=== PATIENT | male | born 1955 | race Caucasian/White ===

== ENCOUNTER 2020-08-05 01:28 | Inpatient (IN) | payer MEDICAID ==
[~2020-08-05] VITALS: Ht 177.8 cm; Wt 60.1 kg
--- NOTE | 2020-08-05 01:46 | NUR ---
THIS IS A 65 YO MALE WHO PRESENTS TO THE ER C/O APPROX 1.5 INCH LAC TO LEFT YARSANI. PT DENIES LOC. PT ADMITS TO DRINKING 9 BEERS THIS EVENING. AO X 4. GCS 15. FS 101. CHA CASTILLO HAS BEEN TO SEE PT. WILL CONT TO MONITO RPT.
[2020-08-05] MEDS ORDERED: SODIUM CHLORIDE 0.9% 1,000ML IVBOLUS ONE (02:00)
[2020-08-05] MEDS ORDERED: MORPHINE SULFATE 4 MG/ML, 1ML IVPush PRN (02:00)
[2020-08-05] MEDS ORDERED: ONDANSETRON 2MG/ML, 2ML IVPush ONE (02:00)
[2020-08-05] MEDS ORDERED: SODIUM CHLORIDE FLUSH 10ML SYR IVF ONE (02:00)
--- NOTE | 2020-08-05 02:12 | NUR ---
CT DELAY- BED BUGS, NEED TO BE DECON.
--- NOTE | 2020-08-05 02:28 | NUR ---
PT CURRENTLY IN DECON.
[2020-08-05] MEDS ORDERED: AMPICILLIN/SULBACTAM 3 GM in SODIUM CHLORIDE 0.9% 100 ML IV ONE (03:00)
[2020-08-05] MEDS ORDERED: VANCOMYCIN PER PHARMACY MC PRN ×2 (03:00→04:30)
--- NOTE | 2020-08-05 03:20 | NUR ---
Patient denies any pain or feeling nausea. Stated that his feet were cold. Legal Support Analyst covered feet with towel for the time being, will con't to monitor patient
--- NOTE | 2020-08-05 03:24 | NUR ---
Waiting on lab to get second set of blood cultures before starting IV antibodics
--- NOTE | 2020-08-05 03:29 | NUR ---
Patient socks needed to be cut off by swimming pool service technician d/t multiple open wounds. Bilateral feet red, warm to touch, multiple draining wound. Provider at bedside during this time. MD states "lets leave them open to air for right now"
[2020-08-05] MEDS ORDERED: PHARMACOKINETIC CONSULTATION MC ONE ×2 (03:30→13:30)
[2020-08-05 03:43] LABS: ALANINE AMINOTRANSFERASE 19 U/L (12-78); ALBUMIN 1.6 g/dL (3.4-5.0); ANION GAP 7 mmol/L (5-15); BASOPHILS % (AUTO) 0 % (0-1); CALCIUM 7.4 mg/dL (8.5-10.1); CHLORIDE 100 mmol/L (98-107); EOSINOPHILS % (AUTO) 0 % (1-7); LYMPHOCYTES % (AUTO) 8 % (22-44); MEAN CORPUSCULAR HEMOGLOBIN 35.8 pg (27.5-34.5); MONOCYTES % (AUTO) 6 % (2-9); NEUTROPHILS % (AUTO) 85 % (42-75); PLATELET COUNT 508 x10^3/uL (130-400); RED BLOOD COUNT 3.19 x10^6/uL (4.38-5.82); RED CELL DISTRIBUTION WIDTH 13.7 % (9.4-14.8)
[2020-08-05 03:50] LABS: ALKALINE PHOSPHATASE 75 U/L (45-117); BILIRUBIN,TOTAL 0.5 mg/dL (0.2-1.0); C-REACTIVE PROTEIN, QUANT 7.03 mg/dL (0.02-0.49); CREATININE 0.61 mg/dL (0.7-1.3); TOTAL PROTEIN 9.1 g/dL (6.4-8.2)
[2020-08-05] MEDS ORDERED: VANCOMYCIN 1,600 MG in SODIUM CHLORIDE 0.9% 250 ML IV ONE (04:00)
[2020-08-05 04:22] LABS: HCT (SEDRATE) 33.5 % (39.2-51.8)
[2020-08-05 04:30] LABS: <PLATELET ESTIMATE> INCREASED; MD MORPH REVIEW ONLY
[2020-08-05 04:31] LABS: SMALL PLATELETS 1+
[2020-08-05] MEDS ORDERED: DOCUSATE 100 MG CAPSULE PO PRN (05:00)
[2020-08-05] MEDS: HEPARIN 5,000 UNITS/ML, 1ML SQ SCH ×3 (05:00→20:48)
--- NOTE | 2020-08-05 06:22 | NUR ---
Patient moved to hospital bed for comfort and skin intergrity. Patient offers no complaints at this time. VSS. Call light within reach
[2020-08-05] MEDS ORDERED: HEPARIN 5,000 UNITS/ML, 1ML ONE ×3 (06:32→20:45)
--- NOTE | 2020-08-05 07:11 | NUR ---
CARE ASSUMED. PT RESTING IN BED. PT ON MONITOR. PT DENIES NEEDS
[2020-08-05] MEDS: POTASSIUM CHLORIDE 20 MEQ, MAGNESIUM SULFATE 1 GM, THIAMINE 200 MG, FOLIC ACID 1 MG, MV... IV SCH (08:12)
[2020-08-05] MEDS: AMPICILLIN/SULBACTAM 3 GM in SODIUM CHLORIDE 0.9% 100 ML IV SCH ×3 (09:00→20:49)
[2020-08-05] MEDS: NICOTINE 14MG/24 HR PATCH.TD24 TD SCH (09:00)
--- NOTE | 2020-08-05 09:00 | NUR ---
PT SLEEPING. DENIE COMPLAINTS
[2020-08-05] MEDS ORDERED: POTASSIUM CHLORIDE 20 MEQ TAB.ER.PRT PO ONE (10:30)
[2020-08-05] MEDS ORDERED: POTASSIUM CHLORIDE 20 MEQ TAB.ER.PRT ONE (10:41)
--- NOTE | 2020-08-05 11:50 | NUR ---
PT UP TO BSC. STAND BY ASSIST.
--- NOTE | 2020-08-05 12:00 | NUR ---
PT GIVEN LUNCH TRAY AND SAT UP FOR COMFORT
[2020-08-05] MEDS ORDERED: PHARMACOKINETIC MONITORING MC PRN (13:30)
--- NOTE | 2020-08-05 14:11 | NUR ---
PTS WOUNDS HAVE BEEN OPEN TO AIR AND DRY, UNABLE TO COLLECT WOUND CX AT THIS TIME.
--- NOTE | 2020-08-05 16:33 | NUR ---
PT GOING TO MRI
[2020-08-05] MEDS ORDERED: GADOTERATE 7.5 MMOL/15 ML VIAL ONE (16:59)
--- NOTE | 2020-08-05 18:05 | NUR ---
PT BACK FROM MRI. PT PLACED BACK ON ALL MONITORING EQUIPMENT. IV RECONNECTED AND STARTED PER NOV.
--- NOTE | 2020-08-05 19:03 | NUR ---
DIET TRAY DELIVERED.
--- NOTE | 2020-08-05 19:27 | NUR ---
PT TRANFERRED TO BEDSIDE COMMODE WITH CGA. PT POSTIONED FOR COMFORT ON HOSPITAL BED.
--- NOTE | 2020-08-05 21:11 | NUR ---
REPORT GIVEN TO HARDY LOUISE.
[2020-08-05 22:51] VITALS: BP 101/51
[2020-08-05] MEDS: VANCOMYCIN 1,300 MG in SODIUM CHLORIDE 0.9% 250 ML IV SCH (23:39)
[2020-08-06 01:13] VITALS: BP 102/51
[2020-08-06] MEDS: AMPICILLIN/SULBACTAM 3 GM in SODIUM CHLORIDE 0.9% 100 ML IV SCH ×4 (03:01→23:31)
[2020-08-06] MEDS: HEPARIN 5,000 UNITS/ML, 1ML SQ SCH ×3 (05:16→22:15)
[2020-08-06 05:42] LABS: BASOPHILS % (AUTO) 1 % (0-1); EOSINOPHILS % (AUTO) 1 % (1-7); LYMPHOCYTES % (AUTO) 11 % (22-44); MEAN CORPUSCULAR HEMOGLOBIN 35.4 pg (27.5-34.5); MEAN CORPUSCULAR HGB CONC 33.7 g/dL (33.2-36.2); MONOCYTES % (AUTO) 9 % (2-9); NEUTROPHILS % (AUTO) 78 % (42-75); PLATELET COUNT 444 x10^3/uL (130-400); RED BLOOD COUNT 2.77 x10^6/uL (4.38-5.82)
[2020-08-06 06:05] LABS: ANION GAP 7 mmol/L (5-15); CALCIUM 7.3 mg/dL (8.5-10.1); CHLORIDE 110 mmol/L (98-107)
[2020-08-06 06:06] LABS: CREATININE 0.44 mg/dL (0.7-1.3)
[2020-08-06 06:57] LABS: MD SCAN
[2020-08-06 08:04] VITALS: BP 102/62
[2020-08-06] MEDS: POTASSIUM CHLORIDE 20 MEQ, MAGNESIUM SULFATE 1 GM, THIAMINE 200 MG, FOLIC ACID 1 MG, MV... IV SCH (08:22)
[2020-08-06] MEDS: NICOTINE 14MG/24 HR PATCH.TD24 TD SCH (09:00)
[2020-08-06] MEDS ORDERED: POTASSIUM CHLORIDE 20 MEQ TAB.ER.PRT PO ONE (10:00)
[2020-08-06 13:20] VITALS: BP 123/64
[2020-08-06] MEDS: VANCOMYCIN 1,300 MG in SODIUM CHLORIDE 0.9% 250 ML IV SCH (18:12)
[2020-08-06 20:35] VITALS: BP 116/67
[2020-08-06 23:28] LABS: CLOSTRIDIUM DIFFICILE ANTIGEN NEGATIVE; CLOSTRIDIUM DIFFICILE TOXIN NEGATIVE (Negative)
[2020-08-07 01:55] VITALS: BP 132/74
[2020-08-07] MEDS: AMPICILLIN/SULBACTAM 3 GM in SODIUM CHLORIDE 0.9% 100 ML IV SCH ×3 (06:13→17:54)
[2020-08-07] MEDS: HEPARIN 5,000 UNITS/ML, 1ML SQ SCH ×3 (06:13→21:17)
[2020-08-07 08:05] VITALS: BP 142/78
[2020-08-07] MEDS: NICOTINE 14MG/24 HR PATCH.TD24 TD SCH (08:21)
[2020-08-07] MEDS: POTASSIUM CHLORIDE 20 MEQ, MAGNESIUM SULFATE 1 GM, THIAMINE 200 MG, FOLIC ACID 1 MG, MV... IV SCH (10:06)
[2020-08-07 10:08] LABS: BASOPHILS % (AUTO) 1 % (0-1); EOSINOPHILS % (AUTO) 1 % (1-7); LYMPHOCYTES % (AUTO) 15 % (22-44); MEAN CORPUSCULAR HEMOGLOBIN 35.2 pg (27.5-34.5); MONOCYTES % (AUTO) 9 % (2-9); NEUTROPHILS % (AUTO) 75 % (42-75); PLATELET COUNT 448 x10^3/uL (130-400); RED BLOOD COUNT 2.99 x10^6/uL (4.38-5.82); RED CELL DISTRIBUTION WIDTH 14.1 % (9.4-14.8)
[2020-08-07 10:13] LABS: MD NO
[2020-08-07 10:15] LABS: ANION GAP 4 mmol/L (5-15); CALCIUM 7.4 mg/dL (8.5-10.1); CHLORIDE 112 mmol/L (98-107); CREATININE 0.53 mg/dL (0.7-1.3)
[2020-08-07] MEDS: VANCOMYCIN 1,300 MG in SODIUM CHLORIDE 0.9% 250 ML IV SCH (10:59)
[2020-08-07 15:55] VITALS: BP 129/73
[2020-08-07 19:19] VITALS: BP 135/75
[2020-08-07] MEDS: VANCOMYCIN 1,200 MG in SODIUM CHLORIDE 0.9% 250 ML IV SCH (22:47)
[2020-08-08] MEDS: AMPICILLIN/SULBACTAM 3 GM in SODIUM CHLORIDE 0.9% 100 ML IV SCH ×4 (00:49→18:37)
[2020-08-08 01:45] VITALS: BP 148/82
[2020-08-08] MEDS: HEPARIN 5,000 UNITS/ML, 1ML SQ SCH ×3 (04:52→20:32)
[2020-08-08 05:47] LABS: BASOPHILS % (AUTO) 1 % (0-1); EOSINOPHILS % (AUTO) 0 % (1-7); LYMPHOCYTES % (AUTO) 10 % (22-44); MEAN CORPUSCULAR HEMOGLOBIN 36.1 pg (27.5-34.5); MEAN CORPUSCULAR HGB CONC 34.4 g/dL (33.2-36.2); MONOCYTES % (AUTO) 7 % (2-9); NEUTROPHILS % (AUTO) 82 % (42-75); PLATELET COUNT 445 x10^3/uL (130-400); RED CELL DISTRIBUTION WIDTH 13.9 % (9.4-14.8)
[2020-08-08 05:59] LABS: CALCIUM 7.3 mg/dL (8.5-10.1); CHLORIDE 111 mmol/L (98-107)
[2020-08-08 06:03] LABS: ANION GAP 4 mmol/L (5-15); CREATININE 0.46 mg/dL (0.7-1.3)
[2020-08-08 06:08] LABS: MD NO
[2020-08-08] MEDS: NICOTINE 14MG/24 HR PATCH.TD24 TD SCH (07:50)
[2020-08-08 08:07] VITALS: BP 145/77
[2020-08-08] MEDS: ACETAMINOPHEN 325 MG TABLET PO PRN ×2 (08:14→20:31)
[2020-08-08] MEDS: VANCOMYCIN 1,200 MG in SODIUM CHLORIDE 0.9% 250 ML IV SCH ×2 (10:10→22:06)
[2020-08-08 12:31] VITALS: BP 117/73
[2020-08-08 19:04] VITALS: BP 122/73
[2020-08-08] MEDS: MUPIROCIN OINT 2%, 22GM TP SCH (21:00)
[2020-08-09] MEDS: AMPICILLIN/SULBACTAM 3 GM in SODIUM CHLORIDE 0.9% 100 ML IV SCH ×4 (00:37→18:30)
[2020-08-09 01:51] VITALS: BP 122/73
[2020-08-09] MEDS: HEPARIN 5,000 UNITS/ML, 1ML SQ SCH ×3 (05:29→20:21)
[2020-08-09 07:30] VITALS: BP 122/75
[2020-08-09] MEDS: MUPIROCIN OINT 2%, 22GM TP SCH ×2 (08:43→20:21)
[2020-08-09] MEDS: NICOTINE 14MG/24 HR PATCH.TD24 TD SCH (08:43)
[2020-08-09] MEDS: VANCOMYCIN 1,200 MG in SODIUM CHLORIDE 0.9% 250 ML IV SCH (10:21)
[2020-08-09 12:57] VITALS: BP 129/77
[2020-08-09 19:03] VITALS: BP 117/73
[2020-08-09] MEDS: CEFAZOLIN PMX 1GM/50ML 50 ML IV SCH (20:21)
[2020-08-09] MEDS: ACETAMINOPHEN 325 MG TABLET PO PRN (20:47)
[2020-08-10 00:18] VITALS: BP 125/74
[2020-08-10] MEDS: CEFAZOLIN PMX 1GM/50ML 50 ML IV SCH ×3 (04:18→20:03)
[2020-08-10] MEDS: HEPARIN 5,000 UNITS/ML, 1ML SQ SCH ×3 (04:22→21:25)
[2020-08-10 06:09] LABS: BASOPHILS % (AUTO) 1 % (0-1); EOSINOPHILS % (AUTO) 1 % (1-7); LYMPHOCYTES % (AUTO) 11 % (22-44); MEAN CORPUSCULAR HEMOGLOBIN 35.3 pg (27.5-34.5); MEAN CORPUSCULAR HGB CONC 33.3 g/dL (33.2-36.2); MONOCYTES % (AUTO) 9 % (2-9); NEUTROPHILS % (AUTO) 79 % (42-75); PLATELET COUNT 457 x10^3/uL (130-400); RED BLOOD COUNT 2.85 x10^6/uL (4.38-5.82)
[2020-08-10 06:52] LABS: MD NO
[2020-08-10 06:59] VITALS: BP 155/88
[2020-08-10 07:53] LABS: ANION GAP 6 mmol/L (5-15); CALCIUM 7.3 mg/dL (8.5-10.1); CHLORIDE 107 mmol/L (98-107)
[2020-08-10 07:54] LABS: CREATININE 0.49 mg/dL (0.7-1.3)
[2020-08-10] MEDS: NICOTINE 14MG/24 HR PATCH.TD24 TD SCH (09:00)
[2020-08-10] MEDS: POTASSIUM CHLORIDE 20 MEQ TAB.ER.PRT PO SCH ×2 (11:17→17:22)
[2020-08-10] MEDS: MUPIROCIN OINT 2%, 22GM TP SCH ×2 (11:17→22:22)
[2020-08-10 13:52] VITALS: BP 116/71
[2020-08-10 18:37] VITALS: BP 115/67
[2020-08-11] MEDS: ACETAMINOPHEN 325 MG TABLET PO PRN ×2 (00:50→11:05)
[2020-08-11 02:04] VITALS: BP 147/78
[2020-08-11] MEDS: CEFAZOLIN PMX 1GM/50ML 50 ML IV SCH ×3 (04:01→20:00)
[2020-08-11] MEDS: HEPARIN 5,000 UNITS/ML, 1ML SQ SCH ×3 (04:01→20:19)
[2020-08-11 07:01] VITALS: BP 149/87
[2020-08-11] MEDS: NICOTINE 14MG/24 HR PATCH.TD24 TD SCH (07:56)
[2020-08-11] MEDS: MUPIROCIN OINT 2%, 22GM TP SCH ×2 (09:13→20:19)
[2020-08-11] MEDS: LACTOBACILLUS CHEW TABLET PO SCH ×3 (09:13→20:18)
[2020-08-11 10:40] LABS: ANION GAP 6 mmol/L (5-15); CALCIUM 7.3 mg/dL (8.5-10.1); CHLORIDE 108 mmol/L (98-107); CREATININE 0.45 mg/dL (0.7-1.3)
[2020-08-11 12:26] VITALS: BP 144/82
[2020-08-11] MEDS: POTASSIUM CHLORIDE 20 MEQ TAB.ER.PRT PO SCH (16:11)
[2020-08-11 18:43] VITALS: BP 127/77
[2020-08-12 00:31] VITALS: BP 139/74
[2020-08-12] MEDS: CEFAZOLIN PMX 1GM/50ML 50 ML IV SCH ×3 (03:57→20:18)
[2020-08-12] MEDS: HEPARIN 5,000 UNITS/ML, 1ML SQ SCH ×3 (04:55→20:18)
[2020-08-12 06:01] LABS: ANION GAP 3 mmol/L (5-15); CALCIUM 7.3 mg/dL (8.5-10.1); CHLORIDE 108 mmol/L (98-107); CREATININE 0.43 mg/dL (0.7-1.3)
[2020-08-12 07:10] VITALS: BP 144/70
[2020-08-12] MEDS: POTASSIUM CHLORIDE 20 MEQ TAB.ER.PRT PO SCH (09:16)
[2020-08-12] MEDS: LACTOBACILLUS CHEW TABLET PO SCH ×3 (09:16→20:18)
[2020-08-12] MEDS: NICOTINE 14MG/24 HR PATCH.TD24 TD SCH (09:17)
[2020-08-12] MEDS: MUPIROCIN OINT 2%, 22GM TP SCH ×2 (11:24→16:36)
[2020-08-12 13:02] VITALS: BP 133/79
[2020-08-12 18:57] VITALS: BP 133/80
[2020-08-12] MEDS: ACETAMINOPHEN 325 MG TABLET PO PRN (21:26)
[2020-08-13 00:47] VITALS: BP 147/85
[2020-08-13] MEDS: CEFAZOLIN PMX 1GM/50ML 50 ML IV SCH ×2 (04:23→11:14)
[2020-08-13] MEDS: HEPARIN 5,000 UNITS/ML, 1ML SQ SCH ×3 (04:24→20:28)
[2020-08-13] MEDS: MUPIROCIN OINT 2%, 22GM TP SCH ×4 (06:00→22:35)
[2020-08-13 07:50] VITALS: BP 158/85
[2020-08-13] MEDS: NICOTINE 14MG/24 HR PATCH.TD24 TD SCH ×2 (09:00→09:51)
[2020-08-13 09:15] LABS: BASOPHILS % (AUTO) 1 % (0-1); EOSINOPHILS % (AUTO) 1 % (1-7); LYMPHOCYTES % (AUTO) 13 % (22-44); MEAN CORPUSCULAR HEMOGLOBIN 35.4 pg (27.5-34.5); MEAN CORPUSCULAR HGB CONC 34.2 g/dL (33.2-36.2); MEAN PLATELET VOLUME 7.2 fL (7.4-10.4); MONOCYTES % (AUTO) 6 % (2-9); NEUTROPHILS % (AUTO) 81 % (42-75); PLATELET COUNT 468 x10^3/uL (130-400); RED CELL DISTRIBUTION WIDTH 13.8 % (9.4-14.8)
[2020-08-13 09:17] LABS: ANION GAP 6 mmol/L (5-15); CALCIUM 7.7 mg/dL (8.5-10.1); CHLORIDE 104 mmol/L (98-107); CREATININE 0.44 mg/dL (0.7-1.3)
[2020-08-13 09:47] LABS: MD SCAN
[2020-08-13] MEDS: LACTOBACILLUS CHEW TABLET PO SCH ×3 (09:49→20:28)
[2020-08-13] MEDS ORDERED: MAGNESIUM SULFATE PMX 4GM/100M 100 ML IVPB ONE (10:00)
[2020-08-13] MEDS ORDERED: LOPERAMIDE 1 MG/5 ML, 10ML UDC PO PRN (10:30)
[2020-08-13] MEDS ORDERED: LOPERAMIDE 2 MG CAPSULE PO ONE (10:30)
[2020-08-13] MEDS: POTASSIUM CHLORIDE 20 MEQ TAB.ER.PRT PO SCH (11:14)
[2020-08-13 12:28] VITALS: BP 147/82
[2020-08-13] MEDS: PIPERACILLIN/TAZO/PMX 4.5GM 100 ML IV SCH (18:13)
[2020-08-13 19:07] LABS: C-REACTIVE PROTEIN, QUANT 2.3 mg/dL (0.02-0.49)
[2020-08-13 19:51] VITALS: BP 112/64
[2020-08-13] MEDS: ACETAMINOPHEN 325 MG TABLET PO PRN (20:28)
[2020-08-14] MEDS: PIPERACILLIN/TAZO/PMX 4.5GM 100 ML IV SCH ×5 (00:09→23:21)
[2020-08-14 01:24] VITALS: BP 137/80
[2020-08-14] MEDS: HEPARIN 5,000 UNITS/ML, 1ML SQ SCH ×3 (05:28→20:48)
[2020-08-14 05:34] LABS: BASOPHILS % (AUTO) 1 % (0-1); EOSINOPHILS % (AUTO) 1 % (1-7); LYMPHOCYTES % (AUTO) 20 % (22-44); MEAN CORPUSCULAR HEMOGLOBIN 35.5 pg (27.5-34.5); MEAN CORPUSCULAR HGB CONC 33.9 g/dL (33.2-36.2); MEAN PLATELET VOLUME 7.1 fL (7.4-10.4); MONOCYTES % (AUTO) 7 % (2-9); NEUTROPHILS % (AUTO) 71 % (42-75); PLATELET COUNT 390 x10^3/uL (130-400); RED BLOOD COUNT 2.65 x10^6/uL (4.38-5.82); RED CELL DISTRIBUTION WIDTH 13.9 % (9.4-14.8)
[2020-08-14 05:38] LABS: ALBUMIN 1.2 g/dL (3.4-5.0); ANION GAP 5 mmol/L (5-15); CALCIUM 7.8 mg/dL (8.5-10.1); CHLORIDE 108 mmol/L (98-107)
[2020-08-14 05:39] LABS: MD NO
[2020-08-14 05:42] LABS: ALANINE AMINOTRANSFERASE 11 U/L (12-78); ALKALINE PHOSPHATASE 56 U/L (45-117); BILIRUBIN,TOTAL 0.3 mg/dL (0.2-1.0)
[2020-08-14 07:10] VITALS: BP 103/58
[2020-08-14] MEDS: NICOTINE 14MG/24 HR PATCH.TD24 TD SCH (09:00)
[2020-08-14] MEDS: LACTOBACILLUS CHEW TABLET PO SCH ×3 (09:39→20:48)
[2020-08-14] MEDS: POTASSIUM CHLORIDE 20 MEQ TAB.ER.PRT PO SCH (09:39)
[2020-08-14] MEDS: THIAMINE 100MG TABLET PO SCH (09:39)
[2020-08-14 13:23] VITALS: BP 113/70
[2020-08-14] MEDS: ACETAMINOPHEN 325 MG TABLET PO PRN (14:05)
[2020-08-14] MEDS: MUPIROCIN OINT 2%, 22GM TP SCH (15:37)
[2020-08-14 19:39] VITALS: BP 109/64
[2020-08-15 01:33] VITALS: BP 119/71
[2020-08-15] MEDS: MUPIROCIN OINT 2%, 22GM TP SCH ×2 (05:31→16:34)
[2020-08-15] MEDS: HEPARIN 5,000 UNITS/ML, 1ML SQ SCH ×3 (05:32→20:18)
[2020-08-15] MEDS: PIPERACILLIN/TAZO/PMX 4.5GM 100 ML IV SCH ×2 (05:33→12:14)
[2020-08-15] MEDS: ACETAMINOPHEN 325 MG TABLET PO PRN (06:18)
[2020-08-15 06:48] LABS: CHLORIDE 103 mmol/L (98-107)
[2020-08-15 06:50] LABS: BASOPHILS % (AUTO) 1 % (0-1); EOSINOPHILS % (AUTO) 1 % (1-7); LYMPHOCYTES % (AUTO) 19 % (22-44); MEAN CORPUSCULAR HEMOGLOBIN 35.2 pg (27.5-34.5); MEAN CORPUSCULAR HGB CONC 33.7 g/dL (33.2-36.2); MEAN PLATELET VOLUME 7.4 fL (7.4-10.4); MONOCYTES % (AUTO) 8 % (2-9); NEUTROPHILS % (AUTO) 73 % (42-75); PLATELET COUNT 444 x10^3/uL (130-400); RED BLOOD COUNT 2.78 x10^6/uL (4.38-5.82)
[2020-08-15 06:56] LABS: ALANINE AMINOTRANSFERASE 13 U/L (12-78); ALBUMIN 1.3 g/dL (3.4-5.0); ALKALINE PHOSPHATASE 59 U/L (45-117); ANION GAP 4 mmol/L (5-15); BILIRUBIN,TOTAL 0.2 mg/dL (0.2-1.0); CALCIUM 7.6 mg/dL (8.5-10.1); CREATININE 0.52 mg/dL (0.7-1.3); TOTAL PROTEIN 8.4 g/dL (6.4-8.2)
[2020-08-15 07:29] LABS: MD NO
[2020-08-15 08:16] VITALS: BP 118/78
[2020-08-15] MEDS: NICOTINE 14MG/24 HR PATCH.TD24 TD SCH (09:00)
[2020-08-15] MEDS: LACTOBACILLUS CHEW TABLET PO SCH ×3 (09:57→20:18)
[2020-08-15] MEDS: THIAMINE 100MG TABLET PO SCH (09:57)
[2020-08-15] MEDS: POTASSIUM CHLORIDE 20 MEQ TAB.ER.PRT PO SCH (09:57)
[2020-08-15] MEDS: ZINC SULFATE 220 MG CAPSULE PO SCH (12:14)
[2020-08-15] MEDS ORDERED: PHARMACY INSTRUCTION MC PRN (13:00)
[2020-08-15] MEDS ORDERED: DEXAMETHASONE 4 MG/ML, 1ML IVPush SCH (13:00)
[2020-08-15] MEDS: DEXAMETHASONE 4 MG/ML, 1ML IVPush SCH (13:25)
[2020-08-15] MEDS: CHOLECALCIFEROL 5,000u TAB PO SCH (13:25)
[2020-08-15 14:00] VITALS: BP 145/82
[2020-08-15] MEDS: ASCORBIC ACID 500 MG TABLET PO SCH (15:25)
[2020-08-15 20:15] VITALS: BP 127/70
[2020-08-16 01:53] VITALS: BP 130/72
[2020-08-16] MEDS: ZOLPIDEM 5MG TABLET PO PRN (03:22)
[2020-08-16] MEDS: HEPARIN 5,000 UNITS/ML, 1ML SQ SCH ×3 (05:45→20:34)
[2020-08-16] MEDS: MUPIROCIN OINT 2%, 22GM TP SCH ×2 (05:45→18:44)
[2020-08-16 06:18] LABS: ALANINE AMINOTRANSFERASE 11 U/L (12-78); ALBUMIN 1.2 g/dL (3.4-5.0); ANION GAP 5 mmol/L (5-15); CALCIUM 7.7 mg/dL (8.5-10.1); CHLORIDE 106 mmol/L (98-107); CREATININE 0.44 mg/dL (0.7-1.3)
[2020-08-16 06:20] LABS: ALKALINE PHOSPHATASE 58 U/L (45-117); BILIRUBIN,TOTAL 0.1 mg/dL (0.2-1.0); TOTAL PROTEIN 8.5 g/dL (6.4-8.2)
[2020-08-16 08:06] VITALS: BP 145/77
[2020-08-16] MEDS: NICOTINE 14MG/24 HR PATCH.TD24 TD SCH (08:54)
[2020-08-16] MEDS: THIAMINE 100MG TABLET PO SCH (08:54)
[2020-08-16] MEDS: DEXAMETHASONE 4 MG/ML, 1ML IVPush SCH (08:54)
[2020-08-16] MEDS: LACTOBACILLUS CHEW TABLET PO SCH ×3 (08:55→20:34)
[2020-08-16] MEDS: ASCORBIC ACID 500 MG TABLET PO SCH ×2 (08:55→15:27)
[2020-08-16] MEDS: ZINC SULFATE 220 MG CAPSULE PO SCH (08:55)
[2020-08-16] MEDS: CHOLECALCIFEROL 5,000u TAB PO SCH (08:55)
[2020-08-16 12:43] VITALS: BP 138/78
[2020-08-16] MEDS ORDERED: REMDESIVIR 200 MG in SODIUM CHLORIDE 0.9% 250 ML IVPB ONE (14:00)
[2020-08-16] MEDS ORDERED: LOPERAMIDE 2 MG CAPSULE ONE (15:23)
[2020-08-16 18:36] VITALS: BP 121/73
[2020-08-17 00:53] VITALS: BP 133/71
[2020-08-17] MEDS: HEPARIN 5,000 UNITS/ML, 1ML SQ SCH ×3 (04:40→21:05)
[2020-08-17] MEDS: MUPIROCIN OINT 2%, 22GM TP SCH ×2 (04:53→15:24)
[2020-08-17 06:58] LABS: BASOPHILS % (AUTO) 1 % (0-1); EOSINOPHILS % (AUTO) 0 % (1-7); LYMPHOCYTES % (AUTO) 24 % (22-44); MD NO; MEAN CORPUSCULAR HEMOGLOBIN 34.4 pg (27.5-34.5); MEAN CORPUSCULAR HGB CONC 33.5 g/dL (33.2-36.2); MEAN PLATELET VOLUME 7.1 fL (7.4-10.4); MONOCYTES % (AUTO) 6 % (2-9); NEUTROPHILS % (AUTO) 69 % (42-75); PLATELET COUNT 420 x10^3/uL (130-400); RED BLOOD COUNT 2.94 x10^6/uL (4.38-5.82); RED CELL DISTRIBUTION WIDTH 13.7 % (9.4-14.8)
[2020-08-17 07:08] LABS: ANION GAP 4 mmol/L (5-15); CALCIUM 7.9 mg/dL (8.5-10.1); CHLORIDE 106 mmol/L (98-107); CREATININE 0.34 mg/dL (0.7-1.3)
[2020-08-17 07:59] VITALS: BP 152/77
[2020-08-17] MEDS: THIAMINE 100MG TABLET PO SCH (08:14)
[2020-08-17] MEDS: CHOLECALCIFEROL 5,000u TAB PO SCH (08:14)
[2020-08-17] MEDS: POTASSIUM CHLORIDE 20 MEQ TAB.ER.PRT PO SCH ×2 (08:14→15:23)
[2020-08-17] MEDS: ZINC SULFATE 220 MG CAPSULE PO SCH (08:14)
[2020-08-17] MEDS: ASCORBIC ACID 500 MG TABLET PO SCH ×2 (08:14→15:24)
[2020-08-17] MEDS: LACTOBACILLUS CHEW TABLET PO SCH ×3 (08:14→21:05)
[2020-08-17] MEDS: DEXAMETHASONE 4 MG/ML, 1ML IVPush SCH (08:14)
[2020-08-17] MEDS: NICOTINE 14MG/24 HR PATCH.TD24 TD SCH (08:15)
[2020-08-17 09:57] LABS: ALANINE AMINOTRANSFERASE 13 U/L (12-78); ALBUMIN 1.4 g/dL (3.4-5.0); ANION GAP 8 mmol/L (5-15); CALCIUM 7.8 mg/dL (8.5-10.1); CHLORIDE 107 mmol/L (98-107)
[2020-08-17 10:00] LABS: ALKALINE PHOSPHATASE 59 U/L (45-117); BILIRUBIN,TOTAL 0.2 mg/dL (0.2-1.0); CREATININE 0.46 mg/dL (0.7-1.3); TOTAL PROTEIN 8.3 g/dL (6.4-8.2)
[2020-08-17 12:08] VITALS: BP 128/81
[2020-08-17] MEDS: REMDESIVIR 100 MG in SODIUM CHLORIDE 0.9% 250 ML IVPB SCH (13:25)
[2020-08-17 19:57] VITALS: BP 139/81
[2020-08-17] MEDS: ACETAMINOPHEN 325 MG TABLET PO PRN (21:05)
[2020-08-18 03:45] LABS: CHLORIDE 108 mmol/L (98-107)
[2020-08-18 03:46] LABS: BASOPHILS % (AUTO) 1 % (0-1); EOSINOPHILS % (AUTO) 0 % (1-7); LYMPHOCYTES % (AUTO) 26 % (22-44); MEAN CORPUSCULAR HEMOGLOBIN 34.9 pg (27.5-34.5); MEAN CORPUSCULAR HGB CONC 33.7 g/dL (33.2-36.2); MEAN PLATELET VOLUME 7.5 fL (7.4-10.4); MONOCYTES % (AUTO) 8 % (2-9); NEUTROPHILS % (AUTO) 65 % (42-75); PLATELET COUNT 443 x10^3/uL (130-400); RED BLOOD COUNT 2.84 x10^6/uL (4.38-5.82); RED CELL DISTRIBUTION WIDTH 13.7 % (9.4-14.8)
[2020-08-18 03:47] LABS: D-DIMER (DIC) 1.83 ug/mlFEU (0.00-0.52); MD NO; PROTIME 21.7 Seconds (9.6-11.5)
[2020-08-18 03:48] VITALS: BP 156/75
[2020-08-18 04:12] LABS: ALANINE AMINOTRANSFERASE 14 U/L (12-78); ALBUMIN 1.4 g/dL (3.4-5.0); ALKALINE PHOSPHATASE 64 U/L (45-117); ANION GAP 4 mmol/L (5-15); CALCIUM 7.7 mg/dL (8.5-10.1); TOTAL PROTEIN 8.2 g/dL (6.4-8.2)
[2020-08-18 04:25] LABS: BILIRUBIN,TOTAL < 0.1 mg/dL (0.2-1.0)
[2020-08-18] MEDS: HEPARIN 5,000 UNITS/ML, 1ML SQ SCH (05:17)
[2020-08-18] MEDS: MUPIROCIN OINT 2%, 22GM TP SCH ×2 (05:17→15:19)
[2020-08-18] MEDS: NICOTINE 14MG/24 HR PATCH.TD24 TD SCH (07:29)
[2020-08-18 07:50] VITALS: BP 149/75
[2020-08-18] MEDS ORDERED: ENOXAPARIN 60 MG/0.6 ML ONE (08:16)
[2020-08-18] MEDS: ZINC SULFATE 220 MG CAPSULE PO SCH (08:21)
[2020-08-18] MEDS: DEXAMETHASONE 4 MG/ML, 1ML IVPush SCH (08:21)
[2020-08-18] MEDS: THIAMINE 100MG TABLET PO SCH (08:21)
[2020-08-18] MEDS: CHOLECALCIFEROL 5,000u TAB PO SCH (08:21)
[2020-08-18] MEDS: ENOXAPARIN 60 MG/0.6 ML SQ SCH ×2 (08:21→21:25)
[2020-08-18] MEDS: LACTOBACILLUS CHEW TABLET PO SCH ×3 (08:21→21:24)
[2020-08-18] MEDS: ASCORBIC ACID 500 MG TABLET PO SCH ×2 (08:21→15:13)
[2020-08-18] MEDS ORDERED: PIPERACILLIN/TAZO/PMX 3.375GM 50 ML IV SCH (12:00)
[2020-08-18 15:11] VITALS: BP 133/75
[2020-08-18] MEDS: REMDESIVIR 100 MG in SODIUM CHLORIDE 0.9% 250 ML IVPB SCH (15:14)
[2020-08-18] MEDS: PIPERACILLIN/TAZO/PMX 3.375GM 50 ML IV SCH ×2 (18:00→23:55)
[2020-08-18 19:33] VITALS: BP 145/77
[2020-08-18] MEDS: ZOLPIDEM 5MG TABLET PO PRN (23:55)
[2020-08-19 00:08] VITALS: BP 158/83
[2020-08-19 04:18] LABS: ALBUMIN 1.7 g/dL (3.4-5.0); ANION GAP 6 mmol/L (5-15); CHLORIDE 105 mmol/L (98-107)
[2020-08-19 04:24] LABS: ALANINE AMINOTRANSFERASE 16 U/L (12-78); ALKALINE PHOSPHATASE 67 U/L (45-117); BILIRUBIN,TOTAL 0.2 mg/dL (0.2-1.0); CREATININE 0.51 mg/dL (0.7-1.3); TOTAL PROTEIN 8.9 g/dL (6.4-8.2)
[2020-08-19] MEDS: MUPIROCIN OINT 2%, 22GM TP SCH ×2 (06:06→16:25)
[2020-08-19] MEDS: PIPERACILLIN/TAZO/PMX 3.375GM 50 ML IV SCH ×4 (06:31→23:51)
[2020-08-19] MEDS: NICOTINE 14MG/24 HR PATCH.TD24 TD SCH (07:21)
[2020-08-19] MEDS: ENOXAPARIN 60 MG/0.6 ML SQ SCH ×2 (07:30→18:38)
[2020-08-19 07:52] VITALS: BP 148/84
[2020-08-19] MEDS: CHOLECALCIFEROL 5,000u TAB PO SCH (08:26)
[2020-08-19] MEDS: LACTOBACILLUS CHEW TABLET PO SCH ×3 (08:26→21:23)
[2020-08-19] MEDS: DEXAMETHASONE 4 MG/ML, 1ML IVPush SCH (08:26)
[2020-08-19] MEDS: THIAMINE 100MG TABLET PO SCH (08:26)
[2020-08-19] MEDS: ZINC SULFATE 220 MG CAPSULE PO SCH (08:26)
[2020-08-19] MEDS: ASCORBIC ACID 500 MG TABLET PO SCH ×2 (08:27→18:02)
[2020-08-19 12:18] VITALS: BP 133/76
[2020-08-19] MEDS: REMDESIVIR 100 MG in SODIUM CHLORIDE 0.9% 250 ML IVPB SCH (14:20)
[2020-08-19 18:48] VITALS: BP 141/74
[2020-08-19] MEDS: ZOLPIDEM 5MG TABLET PO PRN (21:23)
[2020-08-20 01:04] VITALS: BP 155/77
[2020-08-20] MEDS: MUPIROCIN OINT 2%, 22GM TP SCH ×2 (06:00→21:00)
[2020-08-20] MEDS: PIPERACILLIN/TAZO/PMX 3.375GM 50 ML IV SCH ×3 (06:09→18:31)
[2020-08-20 06:10] LABS: ALANINE AMINOTRANSFERASE 16 U/L (12-78); ALBUMIN 1.6 g/dL (3.4-5.0); ANION GAP 7 mmol/L (5-15); CHLORIDE 107 mmol/L (98-107); CREATININE 0.52 mg/dL (0.7-1.3)
[2020-08-20 06:12] LABS: ALKALINE PHOSPHATASE 69 U/L (45-117); BILIRUBIN,TOTAL 0.1 mg/dL (0.2-1.0); TOTAL PROTEIN 8.3 g/dL (6.4-8.2)
[2020-08-20] MEDS: NICOTINE 14MG/24 HR PATCH.TD24 TD SCH (07:11)
[2020-08-20 07:20] VITALS: BP 148/81
[2020-08-20] MEDS: ENOXAPARIN 60 MG/0.6 ML SQ SCH ×2 (07:30→20:28)
[2020-08-20] MEDS: LACTOBACILLUS CHEW TABLET PO SCH ×3 (09:42→23:19)
[2020-08-20] MEDS: DEXAMETHASONE 4 MG/ML, 1ML IVPush SCH (09:42)
[2020-08-20] MEDS: ASCORBIC ACID 500 MG TABLET PO SCH ×2 (09:42→16:35)
[2020-08-20] MEDS: CHOLECALCIFEROL 5,000u TAB PO SCH (09:42)
[2020-08-20] MEDS: THIAMINE 100MG TABLET PO SCH (09:43)
[2020-08-20] MEDS: ZINC SULFATE 220 MG CAPSULE PO SCH (09:47)
[2020-08-20] MEDS ORDERED: MAGNESIUM SULFATE PMX 4GM/100M 100 ML IVPB ONE (10:30)
[2020-08-20 12:14] VITALS: BP 138/81
[2020-08-20] MEDS: REMDESIVIR 100 MG in SODIUM CHLORIDE 0.9% 250 ML IVPB SCH (16:31)
[2020-08-20] MEDS: POTASSIUM CHLORIDE 20 MEQ TAB.ER.PRT PO SCH (16:35)
[2020-08-20 19:40] VITALS: BP 130/80
[2020-08-21] MEDS: ZOLPIDEM 5MG TABLET PO PRN
[2020-08-21 01:40] VITALS: BP 154/87
[2020-08-21 05:58] LABS: BASOPHILS % (AUTO) 1 % (0-1); EOSINOPHILS % (AUTO) 0 % (1-7); LYMPHOCYTES % (AUTO) 22 % (22-44); MEAN CORPUSCULAR HEMOGLOBIN 34.6 pg (27.5-34.5); MEAN CORPUSCULAR HGB CONC 33.8 g/dL (33.2-36.2); MEAN PLATELET VOLUME 7.5 fL (7.4-10.4); MONOCYTES % (AUTO) 8 % (2-9); NEUTROPHILS % (AUTO) 70 % (42-75); PLATELET COUNT 570 x10^3/uL (130-400); RED BLOOD COUNT 2.96 x10^6/uL (4.38-5.82); RED CELL DISTRIBUTION WIDTH 13.6 % (9.4-14.8)
[2020-08-21 06:06] LABS: CHLORIDE 106 mmol/L (98-107); D-DIMER (DIC) 1.7 ug/mlFEU (0.00-0.52); PROTIME 12.2 Seconds (9.6-11.5)
[2020-08-21] MEDS: PIPERACILLIN/TAZO/PMX 3.375GM 50 ML IV SCH ×4 (06:08→17:56)
[2020-08-21 06:11] LABS: ALANINE AMINOTRANSFERASE 19 U/L (12-78); ALBUMIN 1.7 g/dL (3.4-5.0); ALKALINE PHOSPHATASE 73 U/L (45-117); ANION GAP 6 mmol/L (5-15); BILIRUBIN,TOTAL 0.1 mg/dL (0.2-1.0); CALCIUM 8.2 mg/dL (8.5-10.1); CREATININE 0.47 mg/dL (0.7-1.3); TOTAL PROTEIN 8.7 g/dL (6.4-8.2)
[2020-08-21 06:17] LABS: MD NO
[2020-08-21 07:00] VITALS: BP 163/86
[2020-08-21] MEDS: ENOXAPARIN 60 MG/0.6 ML SQ SCH ×2 (07:50→21:42)
[2020-08-21] MEDS: ASCORBIC ACID 500 MG TABLET PO SCH ×2 (07:51→16:29)
[2020-08-21] MEDS: POTASSIUM CHLORIDE 20 MEQ TAB.ER.PRT PO SCH (07:51)
[2020-08-21] MEDS: ZINC SULFATE 220 MG CAPSULE PO SCH (07:51)
[2020-08-21] MEDS: THIAMINE 100MG TABLET PO SCH (07:51)
[2020-08-21] MEDS: DEXAMETHASONE 4 MG/ML, 1ML IVPush SCH (07:51)
[2020-08-21] MEDS: NICOTINE 14MG/24 HR PATCH.TD24 TD SCH (07:51)
[2020-08-21] MEDS: LACTOBACILLUS CHEW TABLET PO SCH ×3 (07:51→21:42)
[2020-08-21] MEDS: CHOLECALCIFEROL 5,000u TAB PO SCH (07:51)
[2020-08-21 12:45] VITALS: BP 121/73
[2020-08-21 20:01] VITALS: BP 152/85
[2020-08-21] MEDS: MUPIROCIN OINT 2%, 22GM TP SCH (21:00)
[2020-08-22 00:06] VITALS: BP 157/88
[2020-08-22] MEDS: PIPERACILLIN/TAZO/PMX 3.375GM 50 ML IV SCH ×4 (00:09→18:01)
[2020-08-22 05:12] LABS: BASOPHILS % (AUTO) 1 % (0-1); EOSINOPHILS % (AUTO) 0 % (1-7); LYMPHOCYTES % (AUTO) 19 % (22-44); MEAN CORPUSCULAR HEMOGLOBIN 34.7 pg (27.5-34.5); MEAN CORPUSCULAR HGB CONC 33.8 g/dL (33.2-36.2); MEAN PLATELET VOLUME 7.5 fL (7.4-10.4); MONOCYTES % (AUTO) 9 % (2-9); NEUTROPHILS % (AUTO) 71 % (42-75); PLATELET COUNT 612 x10^3/uL (130-400); RED BLOOD COUNT 3.02 x10^6/uL (4.38-5.82); RED CELL DISTRIBUTION WIDTH 13.9 % (9.4-14.8)
[2020-08-22 05:21] LABS: CHLORIDE 105 mmol/L (98-107)
[2020-08-22 05:25] LABS: ANION GAP 6 mmol/L (5-15); CALCIUM 8.2 mg/dL (8.5-10.1); CREATININE 0.49 mg/dL (0.7-1.3)
[2020-08-22 05:33] LABS: MD NO
[2020-08-22 07:13] VITALS: BP 134/78
[2020-08-22] MEDS: ENOXAPARIN 60 MG/0.6 ML SQ SCH ×2 (07:57→21:45)
[2020-08-22] MEDS: LACTOBACILLUS CHEW TABLET PO SCH ×3 (07:57→21:44)
[2020-08-22] MEDS: CHOLECALCIFEROL 5,000u TAB PO SCH (07:57)
[2020-08-22] MEDS: ASCORBIC ACID 500 MG TABLET PO SCH ×2 (07:57→16:29)
[2020-08-22] MEDS: ZINC SULFATE 220 MG CAPSULE PO SCH (07:57)
[2020-08-22] MEDS: DEXAMETHASONE 4 MG/ML, 1ML IVPush SCH (07:57)
[2020-08-22] MEDS: THIAMINE 100MG TABLET PO SCH (07:57)
[2020-08-22] MEDS: NICOTINE 14MG/24 HR PATCH.TD24 TD SCH (07:58)
[2020-08-22 12:36] VITALS: BP 109/66
--- NOTE | 2020-08-22 16:47 | NUR ---
3rd floor nursing activity sheet on pt's wall. educated pt to be proactive to have nurisng assist pt with: 1) up in chair for meals 2) walk 2-3 times a day in room informed RN. Addendum: 08/22/20 at 1649 by Heike Uribe PT Amended: Links added.
[2020-08-22 19:21] VITALS: BP 125/66
[2020-08-22] MEDS: MUPIROCIN OINT 2%, 22GM TP SCH (21:00)
[2020-08-23] MEDS: PIPERACILLIN/TAZO/PMX 3.375GM 50 ML IV SCH ×4 (00:25→17:27)
[2020-08-23 01:18] VITALS: BP 147/89
[2020-08-23 06:27] LABS: BASOPHILS % (AUTO) 0 % (0-1); EOSINOPHILS % (AUTO) 0 % (1-7); LYMPHOCYTES % (AUTO) 16 % (22-44); MEAN CORPUSCULAR HEMOGLOBIN 34.6 pg (27.5-34.5); MEAN CORPUSCULAR HGB CONC 33.7 g/dL (33.2-36.2); MEAN PLATELET VOLUME 7.3 fL (7.4-10.4); MONOCYTES % (AUTO) 8 % (2-9); NEUTROPHILS % (AUTO) 75 % (42-75); PLATELET COUNT 611 x10^3/uL (130-400); RED BLOOD COUNT 3.04 x10^6/uL (4.38-5.82); RED CELL DISTRIBUTION WIDTH 14.2 % (9.4-14.8)
[2020-08-23 06:30] LABS: MD NO
[2020-08-23 06:37] LABS: ANION GAP 6 mmol/L (5-15); CALCIUM 8.1 mg/dL (8.5-10.1); CHLORIDE 105 mmol/L (98-107); CREATININE 0.43 mg/dL (0.7-1.3)
[2020-08-23 07:10] VITALS: BP 136/83
[2020-08-23] MEDS: NICOTINE 14MG/24 HR PATCH.TD24 TD SCH (09:00)
[2020-08-23] MEDS: THIAMINE 100MG TABLET PO SCH (09:23)
[2020-08-23] MEDS: ZINC SULFATE 220 MG CAPSULE PO SCH (09:23)
[2020-08-23] MEDS: ENOXAPARIN 60 MG/0.6 ML SQ SCH ×2 (09:23→21:39)
[2020-08-23] MEDS: ASCORBIC ACID 500 MG TABLET PO SCH ×2 (09:23→15:38)
[2020-08-23] MEDS: CHOLECALCIFEROL 5,000u TAB PO SCH (09:23)
[2020-08-23] MEDS: LACTOBACILLUS CHEW TABLET PO SCH ×3 (09:23→21:40)
[2020-08-23] MEDS: DEXAMETHASONE 4 MG TABLET PO SCH (09:23)
[2020-08-23 12:02] VITALS: BP 115/67
[2020-08-23 19:02] VITALS: BP 138/77
[2020-08-23] MEDS: MUPIROCIN OINT 2%, 22GM TP SCH (21:00)
[2020-08-24] MEDS: PIPERACILLIN/TAZO/PMX 3.375GM 50 ML IV SCH ×2 (00:28→06:03)
[2020-08-24 00:55] VITALS: BP 131/69
[2020-08-24 07:28] VITALS: BP 151/83
[2020-08-24] MEDS: ENOXAPARIN 60 MG/0.6 ML SQ SCH ×2 (10:01→20:45)
[2020-08-24] MEDS: ASCORBIC ACID 500 MG TABLET PO SCH ×2 (10:01→16:05)
[2020-08-24] MEDS: THIAMINE 100MG TABLET PO SCH (10:01)
[2020-08-24] MEDS: CHOLECALCIFEROL 5,000u TAB PO SCH (10:01)
[2020-08-24] MEDS: ZINC SULFATE 220 MG CAPSULE PO SCH (10:01)
[2020-08-24] MEDS: NICOTINE 14MG/24 HR PATCH.TD24 TD SCH (10:01)
[2020-08-24] MEDS: LACTOBACILLUS CHEW TABLET PO SCH ×3 (10:01→20:44)
[2020-08-24] MEDS: DEXAMETHASONE 4 MG TABLET PO SCH (10:01)
[2020-08-24 15:29] VITALS: BP 132/69
[2020-08-24 19:45] VITALS: BP 125/74
[2020-08-25 01:53] VITALS: BP 132/79
[2020-08-25 03:10] LABS: ANION GAP 2 mmol/L (5-15); CALCIUM 8.4 mg/dL (8.5-10.1); CHLORIDE 105 mmol/L (98-107); CREATININE 0.49 mg/dL (0.7-1.3)
[2020-08-25 03:12] LABS: D-DIMER (DIC) 0.89 ug/mlFEU (0.00-0.52); PROTIME 11.4 Seconds (9.6-11.5)
[2020-08-25 09:00] VITALS: BP 130/68
[2020-08-25] MEDS: NICOTINE 14MG/24 HR PATCH.TD24 TD SCH (09:01)
[2020-08-25] MEDS: LACTOBACILLUS CHEW TABLET PO SCH ×3 (09:08→20:11)
[2020-08-25] MEDS: ENOXAPARIN 60 MG/0.6 ML SQ SCH (09:08)
[2020-08-25] MEDS: DEXAMETHASONE 4 MG TABLET PO SCH (09:08)
[2020-08-25] MEDS: THIAMINE 100MG TABLET PO SCH (09:08)
[2020-08-25] MEDS: ZINC SULFATE 220 MG CAPSULE PO SCH (09:08)
[2020-08-25] MEDS: ASCORBIC ACID 500 MG TABLET PO SCH ×2 (09:08→17:18)
[2020-08-25] MEDS: CHOLECALCIFEROL 5,000u TAB PO SCH (09:09)
[2020-08-25] MEDS ORDERED: THIA100T67 PO (09:21)
[2020-08-25] MEDS ORDERED: ZINC220C7 PO (09:21)
[2020-08-25] MEDS ORDERED: ACET325T26 PO (09:21)
[2020-08-25] MEDS ORDERED: ASPI-650 PO (09:21)
[2020-08-25] MEDS ORDERED: CHOL500045 PO (09:21)
[2020-08-25] MEDS ORDERED: ASCO500T9 PO (09:21)
[2020-08-25] MEDS ORDERED: ATOR10TA9 PO (09:34)
[2020-08-25] MEDS ORDERED: DEXA4TAB66 PO (09:34)
[2020-08-25 15:59] VITALS: BP 132/69
[2020-08-25 19:36] VITALS: BP 123/70
[2020-08-25] MEDS ORDERED: ATORVASTATIN 10 MG TABLET PO SCH (21:00)
[2020-08-26 01:32] VITALS: BP 119/66
[2020-08-26] MEDS ORDERED: ASPIRIN 325 MG TABLET PO SCH (06:00)
[2020-08-26 07:52] VITALS: BP 166/92
[2020-08-26] MEDS: NICOTINE 14MG/24 HR PATCH.TD24 TD SCH (09:00)
[2020-08-26] MEDS: THIAMINE 100MG TABLET PO SCH (10:38)
[2020-08-26] MEDS: ASCORBIC ACID 500 MG TABLET PO SCH (10:38)
[2020-08-26] MEDS: ZINC SULFATE 220 MG CAPSULE PO SCH (10:38)
[2020-08-26] MEDS: LACTOBACILLUS CHEW TABLET PO SCH (10:38)
[2020-08-26] MEDS: CHOLECALCIFEROL 5,000u TAB PO SCH (10:38)
[2020-08-26] MEDS: DEXAMETHASONE 4 MG TABLET PO SCH (10:39)
[2020-08-26 12:57] VITALS: BP 137/80
== END 2020-08-26 15:53 | disposition home or self-care (01) | DRG 177 ==
LOC: ED 04:22 → EDIP 04:33 → 3N 21:53
PROVIDERS: ADMIT Family Medicine; ATTEND Hospitalist
PROC: XW033E5 Introduction of Remdesivir Anti-infective into Peripheral Vein, Percutaneous Approach, New Technology Group 5 (ICD-10-PCS; principal; 2020-08-16)
DX: U07.1 COVID-19 (principal); J96.01 Acute respiratory failure with hypoxia; J12.89 Other viral pneumonia; E43 Unspecified severe protein-calorie malnutrition; L03.115 Cellulitis of right lower limb; E87.1 Hypo-osmolality and hyponatremia; L03.116 Cellulitis of left lower limb; I73.9 Peripheral vascular disease, unspecified; F10.129 Alcohol abuse with intoxication, unspecified; R19.7 Diarrhea, unspecified; E87.6 Hypokalemia; E83.42 Hypomagnesemia; D64.9 Anemia, unspecified; S01.81XA Laceration without foreign body of other part of head, initial encounter; W18.39XA Other fall on same level, initial encounter; Z59.0 Homelessness; Z63.8 Other specified problems related to primary support group; Z72.0 Tobacco use; Z79.01 Long term (current) use of anticoagulants; Y93.89 Activity, other specified; Y92.89 Other specified places as the place of occurrence of the external cause; Y99.8 Other external cause status
CPT/HCPCS: 36415; 70450; 71045; 71275; 80048; 80053; 80202; 80307; 82607; 83605; 83615; 83735; 84100; 84145; 84425; 85025; 85049; 85379; 85384; 85610; 85651; 85730; 86140; 87040; 87070; 87077; 87147; 87186; 87205; 87324; 87635; 93925; 96361; 96365; 96367; 99285; G0378; J0295; J0690; J1100; J1644; J1650; J2543; J3370; J3411; J3475; J3480; A9575; J7030; J7050; U0003